=== PATIENT | male | born 1950 | race Caucasian/White ===

== ENCOUNTER 2020-09-22 16:46 | Inpatient (IN) | payer MEDICARE ==
[~2020-09-22] VITALS: Ht 172.7 cm; Wt 93.9 kg
[2020-09-22 18:27] LABS: HEMOGLOBIN 11.1 gm/dl (14.0-17.5); RED BLOOD COUNT 3.75 M/UL (4.20-5.50); WHITE BLOOD COUNT 9.6 K/UL (4.5-11.0)
[2020-09-22 18:50] LABS: BUN/CREATININE RATIO 15 (0-10)
[2020-09-23] MEDS ORDERED: FENOFIBRATE160 MG PO
[2020-09-23] MEDS ORDERED: TAMSULOSIN HCL0.4 MG PO (00:01)
[2020-09-23] MEDS ORDERED: BENICAR HCT 401 EAC1 PO (00:02)
[2020-09-23] MEDS ORDERED: ZYLOPRIM 100 M100 MG PO (00:02)
[2020-09-23] MEDS ORDERED: CRESTOR5 MG PO (00:07)
[2020-09-23 03:17] LABS: HEMOGLOBIN 10.9 gm/dl (14.0-17.5); RED BLOOD COUNT 3.72 M/UL (4.20-5.50)
[2020-09-23 03:28] LABS: WHITE BLOOD COUNT 12.3 K/UL (4.5-11.0)
[2020-09-23 03:44] LABS: BUN/CREATININE RATIO 11 (0-10)
[2020-09-24 03:00] LABS: HEMOGLOBIN 9.4 gm/dl (14.0-17.5); WHITE BLOOD COUNT 9.3 K/UL (4.5-11.0)
[2020-09-24 03:03] LABS: RED BLOOD COUNT 3.25 M/UL (4.20-5.50)
[2020-09-24 03:22] LABS: BUN/CREATININE RATIO 11 (0-10)
[2020-09-25 02:59] LABS: RED BLOOD COUNT 3.41 M/UL (4.20-5.50); WHITE BLOOD COUNT 8.6 K/UL (4.5-11.0)
[2020-09-25 03:19] LABS: BUN/CREATININE RATIO 11 (0-10)
[2020-09-25] MEDS ORDERED: COZAAR 50MG TAB50 MG PO (10:15)
[2020-09-25] MEDS ORDERED: LEVOFLOXACIN750 MG PO (10:17)
== END 2020-09-25 13:12 | disposition home or self-care (01) | DRG 872 ==
LOC: ER1 16:46 → CDU 21:57 → M/S 21:57
PROVIDERS: Internal Medicine; Physician Assistant; Physician Assistant Medical; ADMIT Internal Medicine
DX: A41.9 Sepsis, unspecified organism (principal); N10 Acute pyelonephritis; E87.1 Hypo-osmolality and hyponatremia; Z20.822 Contact with and (suspected) exposure to COVID-19; E87.6 Hypokalemia; I10 Essential (primary) hypertension; E78.5 Hyperlipidemia, unspecified; E86.0 Dehydration; M10.9 Gout, unspecified; T50.2X5A Adverse effect of carbonic-anhydrase inhibitors, benzothiadiazides and other diuretics, initial encounter; E66.9 Obesity, unspecified; Z87.440 Personal history of urinary (tract) infections; Z88.0 Allergy status to penicillin; Z87.891 Personal history of nicotine dependence; Z88.1 Allergy status to other antibiotic agents; Z72.89 Other problems related to lifestyle; Z68.31 Body mass index [BMI] 31.0-31.9, adult
CPT/HCPCS: 0240U; 36415; 71046; 80048; 80053; 81001; 83605; 85025; 86140; 87040; 87086; 93005; 96374; 96376; 99284; J0696; J1650; J3480; J7050; J7120; Q9967